=== PATIENT | female | born 1960 | race Caucasian/White ===

== ENCOUNTER 2018-11-12 08:32 | Day surgery (SDC) | payer OTHER ==
[~2018-11-12] VITALS: Ht 174 cm; Wt 81.8 kg
[~2018-11-12 08:32] MED LIST: ASPI-611 PO; BISO1TAB39 PO; CHOL100046 PO
[2018-11-12 08:39] VITALS: BP 135/85
[2018-11-12] MEDS ORDERED: fentaNYL/PF 50MCG/1 ML 2ML syringe ONE (08:42)
[2018-11-12] MEDS ORDERED: MIDAZolam 5mg/5ml vial ONE (08:43)
[2018-11-12] MEDS ORDERED: ESOM20CA PO (08:51)
[2018-11-12] MEDS ORDERED: ASPI-611 PO (08:51)
[2018-11-12 10:46] VITALS: BP 116/65
[2018-11-12 10:56] VITALS: BP 115/93
[2018-11-12 11:06] VITALS: BP 111/65
[2018-11-12 11:16] VITALS: BP 120/70
== END 2018-11-12 11:45 | disposition home or self-care (01) ==
LOC: GI LAB 08:32
PROVIDERS: ATTEND Internal Medicine Gastroenterology
DX: Z12.11 Encounter for screening for malignant neoplasm of colon (principal); K64.8 Other hemorrhoids; Q43.8 Other specified congenital malformations of intestine; K63.89 Other specified diseases of intestine
CPT/HCPCS: 45378; 99152; 99153; J2250; J3010; J7040; A4620

== ENCOUNTER 2019-07-30 08:55 | Outpatient (CLI) | payer OTHER ==
[~2019-07-30 08:55] MED LIST changes: -BISO1TAB39 PO; +ESOM20CA PO
[2019-07-30 09:49] LABS: BASOPHILS # (AUTO) 0.1 X10'3 (0-0.2); BASOPHILS % (AUTO) 1.4 % (0-1); EOSINOPHILS # (AUTO) 0.1 X10'3 (0-0.9); EOSINOPHILS % (AUTO) 1.6 % (0-6); HEMATOCRIT 41.7 % (35.0-45.0); HEMOGLOBIN 13.5 g/dl (12.0-16.0); LYMPHOCYTES # (AUTO) 2.3 X10'3 (1.1-4.8); LYMPHOCYTES % (AUTO) 32.5 % (21-51); MEAN CORPUSCULAR HEMOGLOBIN 27.9 PG (27.0-31.0); MEAN CORPUSCULAR HGB CONC 32.4 g/dL (33.0-36.5); MEAN CORPUSCULAR VOLUME 86.2 FL (78-98); MEAN PLATELET VOLUME 10.1 FL (7.4-10.4); MONOCYTES # (AUTO) 0.5 X10'3 (0-0.9); MONOCYTES % (AUTO) 7.5 % (2-12); PLATELET COUNT 256 X10'3 (140-440); RED BLOOD COUNT 4.84 X10'6 (4.20-5.60); RED CELL DISTRIBUTION WIDTH 14.9 % (11.5-14.5)
[2019-07-30 10:01] LABS: RHEUM FACTOR QUAL REFLEX TITER NEGATIVE (Neg)
[2019-07-30 10:06] LABS: ALANINE AMINOTRANSFERASE 21 U/L (12-78); ALBUMIN 3.5 G/DL (3.4-5.0); ALBUMIN/GLOBULIN RATIO 0.9 (1.1-1.5); ALKALINE PHOSPHATASE 91 IU/L (46-116); ANION GAP 5 (8-16); ASPARTATE AMINO TRANSFERASE 21 U/L (10-37); BILIRUBIN,TOTAL 0.9 MG/DL (0.1-1.0); BLOOD UREA NITROGEN 8 MG/DL (7-18); BUN/CREATININE RATIO 9.1 (6.6-38.0); CALCIUM 8.6 MG/DL (8.5-10.1); CHLORIDE 106 MMOL/L (99-107); CHOL/HDL RATIO 2.9 (0.00-4.99); CHOLESTEROL 185 MG/DL (0-200); CREATININE 0.88 MG/DL (0.40-0.90); GLUCOSE 92 MG/DL (70-104); HDL CHOLESTEROL 63 MG/DL (35-60); LDL CHOLESTEROL 106 MG/DL (50-100); POTASSIUM 3.9 MMOL/L (3.5-5.1); SODIUM 143 MMOL/L (135-145); TOTAL CARBON DIOXIDE 31.6 MMOL/L (24-32); TOTAL PROTEIN 7.4 G/DL (6.4-8.2); TRIGLYCERIDES 72 MG/DL (20-135); eGFR 66 ML/MIN
[2019-07-30 10:10] LABS: HEMOGLOBIN A1C 5.3 % (4.5-6.2)
[2019-07-31 09:12] LABS: ESTRADIOL <5.0 pg/mL (.); FSH, SERUM 71.6 mIU/mL (.); PROGESTERONE <0.1 ng/mL (.)
[2019-07-31 17:19] LABS: ANTINUCLEAR ANTIBODIES Negative (Negative)
== END 2019-07-30 23:59 | disposition home or self-care (01) ==
LOC: LAB 08:55
PROVIDERS: ATTEND Nurse Practitioner Family
DX: Z00.00 Encounter for general adult medical examination without abnormal findings (principal); M79.672 Pain in left foot; M25.552 Pain in left hip; I12.9 Hypertensive chronic kidney disease with stage 1 through stage 4 chronic kidney disease, or unspecified chronic kidney disease; N95.1 Menopausal and female climacteric states
CPT/HCPCS: 36415; 80053; 80061; 82306; 82670; 83001; 83002; 83036; 84144; 84402; 84403; 84443; 85025; 85651; 86038; 86140; 86430

== ENCOUNTER 2019-11-06 10:05 | Outpatient (CLI) | payer BC | END 2019-11-06 23:59 | disposition home or self-care (01) | LOC: RAD 10:05 | PROVIDERS: ATTEND Nurse Practitioner Family | DX: M51.36 Other intervertebral disc degeneration, lumbar region (principal); M25.552 Pain in left hip; M79.672 Pain in left foot | CPT/HCPCS: 72110; 73502; 73630 ==

== ENCOUNTER 2020-11-12 08:45 | Day surgery (SDC) | payer BC ==
[~2020-11-12] VITALS: Ht 172.7 cm; Wt 81.8 kg
[2020-11-12 09:00] VITALS: BP 154/96
[2020-11-12] MEDS ORDERED: LIDOcaine Viscous 15ml cup ONE (09:00)
[2020-11-12] MEDS ORDERED: fentaNYL/PF 50MCG/1 ML 2ML syringe ONE (09:00)
[2020-11-12] MEDS ORDERED: MIDAZolam 1 MG/ML 5ML VIAL ONE (09:00)
[2020-11-12 11:05] VITALS: BP 109/67
[2020-11-12 11:15] VITALS: BP 102/68
[2020-11-12 11:25] VITALS: BP 109/67
[2020-11-12 11:35] VITALS: BP 118/73
== END 2020-11-12 11:50 | disposition home or self-care (01) ==
LOC: GI LAB 08:45
PROVIDERS: ATTEND Internal Medicine Gastroenterology
DX: K22.70 Barrett's esophagus without dysplasia (principal); K22.8 Other specified diseases of esophagus; I10 Essential (primary) hypertension; Z88.2 Allergy status to sulfonamides; Z79.899 Other long term (current) drug therapy
CPT/HCPCS: 43239; 99152; J2250; J3010; J7040; Z7512; A4620

== ENCOUNTER 2023-12-20 09:52 | Day surgery (SDC) | payer BC ==
[~2023-12-20] VITALS: Ht 172.7 cm; Wt 86.3 kg
[~2023-12-20 09:52] MED LIST changes: -ASPI-611 PO; +BISO1TAB37 PO; -CHOL100046 PO; -ESOM20CA PO
[2023-12-20 10:56] VITALS: BP 151/83; PULSE 70; RESP 18
[2023-12-20] MEDS ORDERED: propofol inj 20 ML IV ONE (11:29)
[2023-12-20] MEDS ORDERED: midazolam 1 mg/ML 2ml injection ONE (11:29)
[2023-12-20] MEDS ORDERED: fentaNYL/PF 50MCG/1 ML 2ML syringe ONE (11:29)
[2023-12-20 11:55] VITALS: BP 117/72; PULSE 57; RESP 16; O2SAT 93
[2023-12-20 12:05] VITALS: BP 112/66; PULSE 57; RESP 16; O2SAT 95
[2023-12-20 12:15] VITALS: BP 134/80; PULSE 54; RESP 14; O2SAT 97
[2023-12-20 12:25] VITALS: BP 132/75; PULSE 61; RESP 14; O2SAT 96
== END 2023-12-20 12:40 | disposition home or self-care (01) ==
LOC: PRE-OP 09:52
PROVIDERS: ATTEND Internal Medicine Gastroenterology
DX: R12 Heartburn (principal); K22.70 Barrett's esophagus without dysplasia; K44.9 Diaphragmatic hernia without obstruction or gangrene; K29.50 Unspecified chronic gastritis without bleeding; K31.A0 Gastric intestinal metaplasia, unspecified; K21.9 Gastro-esophageal reflux disease without esophagitis; I10 Essential (primary) hypertension; Z87.891 Personal history of nicotine dependence; Z79.899 Other long term (current) drug therapy; Z88.2 Allergy status to sulfonamides
CPT/HCPCS: 43239; J2250; J2704; J3010; J7030; Z7512; A4620

== ENCOUNTER 2024-06-11 14:31 | Outpatient (CLI) | payer BC | END 2024-06-11 23:59 | disposition home or self-care (01) | LOC: VAS 14:31 | PROVIDERS: ATTEND Physician Assistant | DX: M47.812 Spondylosis without myelopathy or radiculopathy, cervical region (principal); R42 Dizziness and giddiness | CPT/HCPCS: 72050; 93880 ==

== ENCOUNTER 2024-06-14 09:56 | Outpatient (CLI) | payer BC ==
[2024-06-14 10:43] LABS: BASOPHILS # (AUTO) 0.1 X10'3 (0-0.2); BASOPHILS % (AUTO) 0.9 % (0-1); EOSINOPHILS # (AUTO) 0.1 X10'3 (0-0.9); EOSINOPHILS % (AUTO) 1.5 % (0-6); HEMATOCRIT 41.7 % (35.0-45.0); HEMOGLOBIN 13.8 g/dl (12.0-16.0); LYMPHOCYTES % (AUTO) 25.1 % (21-51); MEAN CORPUSCULAR HEMOGLOBIN 27.4 PG (27.0-31.0); MEAN CORPUSCULAR VOLUME 83.1 FL (78-98); MEAN PLATELET VOLUME 9.6 FL (7.4-10.4); MONOCYTES # (AUTO) 0.6 X10'3 (0-0.9); MONOCYTES % (AUTO) 7.5 % (2-12); NEUTROPHILS # (AUTO) 5.3 X10'3 (1.8-7.7); PLATELET COUNT 254 X10'3 (140-440); RED BLOOD COUNT 5.02 X10'6 (4.20-5.60); RED CELL DISTRIBUTION WIDTH 15.2 % (11.5-14.5); WHITE BLOOD COUNT 8.1 X10'3 (4.5-11.0)
[2024-06-14 10:58] LABS: ANION GAP 6 (8-16); BLOOD UREA NITROGEN 24 MG/DL (7-18); CHLORIDE 105 MMOL/L (99-107); GLUCOSE 89 MG/DL (70-104); POTASSIUM 3.7 MMOL/L (3.5-5.1); SODIUM 141 MMOL/L (135-145); TOTAL CARBON DIOXIDE 30.3 MMOL/L (24-32)
[2024-06-14 10:59] LABS: ALANINE AMINOTRANSFERASE 23 U/L (12-78); ALBUMIN 3.4 G/DL (3.4-5.0); ALBUMIN/GLOBULIN RATIO 0.9 (1.1-1.5); ALKALINE PHOSPHATASE 92 IU/L (46-116); ASPARTATE AMINO TRANSFERASE 19 U/L (10-37); CALCIUM 8.1 MG/DL (8.5-10.1); CHOLESTEROL 205 MG/DL (0-200); HDL CHOLESTEROL 68 MG/DL (35-60); HEMOGLOBIN A1C 5.5 % (4.5-6.2); LDL CHOLESTEROL 119 MG/DL (50-100); THYROID STIMULATING HORMONE 2.21 ulU/ml (0.34-4.50); TOTAL PROTEIN 7.4 G/DL (6.4-8.2); TRIGLYCERIDES 51 MG/DL (20-135); eGFR 72 ML/MIN
== END 2024-06-14 23:59 | disposition home or self-care (01) ==
LOC: RAD 09:56
PROVIDERS: ATTEND Emergency Medical Technician, Paramedic
DX: E11.9 Type 2 diabetes mellitus without complications (principal); E78.5 Hyperlipidemia, unspecified; Z00.00 Encounter for general adult medical examination without abnormal findings; E55.9 Vitamin D deficiency, unspecified; R79.89 Other specified abnormal findings of blood chemistry; R94.30 Abnormal result of cardiovascular function study, unspecified; R00.2 Palpitations
CPT/HCPCS: 36415; 80053; 80061; 82306; 83036; 84443; 84484; 85025

== ENCOUNTER 2024-06-21 11:05 | Outpatient (CLI) | payer BC ==
[2024-06-21 12:29] LABS: ALANINE AMINOTRANSFERASE 19 U/L (12-78); ALBUMIN 3.4 G/DL (3.4-5.0); ALBUMIN/GLOBULIN RATIO 0.9 (1.1-1.5); ALKALINE PHOSPHATASE 87 IU/L (46-116); ANION GAP 3 (8-16); ASPARTATE AMINO TRANSFERASE 18 U/L (10-37); BILIRUBIN,TOTAL 1.2 MG/DL (0.1-1.0); BLOOD UREA NITROGEN 24 MG/DL (7-18); BUN/CREATININE RATIO 29.3 (10.0-20.0); CALCIUM 8.5 MG/DL (8.5-10.1); CHLORIDE 106 MMOL/L (99-107); CHOL/HDL RATIO 2.4 (0.00-4.99); CHOLESTEROL 174 MG/DL (0-200); CREATININE 0.82 MG/DL (0.40-0.90); FREE T4 (FREE THYROXINE) 1.12 NG/DL (0.73-1.40); GLUCOSE 99 MG/DL (70-104); HDL CHOLESTEROL 74 MG/DL (35-60); LDL CHOLESTEROL 90 MG/DL (50-100); MAGNESIUM 2.1 MG/DL (1.5-2.4); POTASSIUM 3.3 MMOL/L (3.5-5.1); SODIUM 141 MMOL/L (135-145); THYROID STIMULATING HORMONE 1.64 ulU/ml (0.34-4.50); TOTAL CARBON DIOXIDE 31.6 MMOL/L (24-32); TOTAL PROTEIN 7.3 G/DL (6.4-8.2); TRIGLYCERIDES 43 MG/DL (20-135); eGFR 70 ML/MIN
== END 2024-06-21 23:59 | disposition home or self-care (01) ==
LOC: RAD 11:05
PROVIDERS: ATTEND Internal Medicine Interventional Cardiology
DX: I11.9 Hypertensive heart disease without heart failure (principal); I49.3 Ventricular premature depolarization
CPT/HCPCS: 36415; 80053; 80061; 83695; 83735; 84439; 84443

== ENCOUNTER → 2024-06-28 | Outpatient (CLI) | payer BC ==
[2024-06-28 14:31] LABS: ALBUMIN 3.4 G/DL (3.4-5.0); ANION GAP 4 (8-16); BLOOD UREA NITROGEN 8 MG/DL (7-18); BUN/CREATININE RATIO 9.5 (10.0-20.0); CALCIUM 8.7 MG/DL (8.5-10.1); CHLORIDE 106 MMOL/L (99-107); CREATININE 0.84 MG/DL (0.40-0.90); GLUCOSE 104 MG/DL (70-104); POTASSIUM 4.2 MMOL/L (3.5-5.1); SODIUM 145 MMOL/L (135-145); TOTAL CARBON DIOXIDE 34.6 MMOL/L (24-32); eGFR 68 ML/MIN
== END | disposition home or self-care (01) ==
LOC: RAD 13:50
PROVIDERS: ATTEND Internal Medicine Interventional Cardiology
DX: I11.9 Hypertensive heart disease without heart failure (principal)
CPT/HCPCS: 36415; 80048

== ENCOUNTER 2024-07-10 10:16 | Outpatient (CLI) | payer BC ==
--- NOTE | 2024-07-10 17:38 | CARDIOLOGY REPORT ---
APPROVED REPORT EXAM: Comprehensive 2D, Doppler, and color-flow Echocardiogram. Patient Location: OUT-PATIENT Blood Pressure: 163/78 mmHg Heart Rate: 73 bpm Rhythm: Sinus Indications Hypertension Dizziness [facility] MARBLE COPER: Grisel Zapata MD No Previous Echo 2D Dimensions LA Diam3.7 cm IVSd 1.0 (0.7-1.1cm) LVDd 3.8 cm PWd 0.7 (0.7-1.1cm) IVSs 0.9 (0.8-1.2cm) LVDs 2.5 (2.5-4.0cm) PWs 0.9 (0.8-1.2cm) LVOT Diameter 2.14 (1.8-2.4cm) LVEF(%) 64.2 (>50%) IVC 17.48 mm FS (%) 34.4 % SV 41.0 ml M-Mode Dimensions Left Atrium(MM) 4.11 (2.5-4.0cm) Aortic Root 2.58 (2.2-3.7cm) MV EPSS 1.0 (<0.5cm) Aortic Valve AoV Peak Nelson. 157.3 cm/s AoV VTI 26.2 cm AO Peak GR. 9.9 mmHg AO Mean GR. 4 mmHg LVOT VTI 22.40 cm LVOT Peak Nelson. 113.0 cm/s VAMSHI (VMAX) 2.59 cm2 VAMSHI (VTI) 3.09 cm2 AI P 1/2 Time 447 ms Mitral Valve MV E Velocity 65.4 cm/s MV DECEL TIME 185 ms MV A Velocity 88.5 cm/s MV PHT 42 ms E/A Ratio 0.7 MVA (PHT) 5.18 cm2 TDI E/Medial E' 12.5 Pulmonary Valve PV Peak Velocity 87.4 cm/s PV Peak Grad. 3 mmHg Tricuspid Valve TR P. Velocity 183 cm/s RAP ESTIMATE 10 mmHg TR Peak Gr. 14 mmHg RVSP 24 mmHg Pulmonary Vein S2 Velocity 65.12 cm/s PVa [id number] msec LEFT VENTRICLE Normal LV size and wall thickness. Overall systolic function is normal. LVEF is 65%. RIGHT VENTRICLE RV is normal size and function. ATRIA Left atrium is mildly dilated. AORTIC VALVE Trileaflet AV appears mildly sclerotic without stenosis. Mild insufficiency. MITRAL VALVE Mild mitral annular calcification without stenosis. Trace regurgitation. TRICUSPID VALVE The tricuspid valve is normal in structure with trace regurgitation. PULMONIC VALVE The pulmonary valve is normal in structure with physiologic insufficiency. GREAT VESSELS The aortic root is normal in size. The ascending aorta is normal in size. The IVC is normal in size a nd collapses >50% with inspiration. PERICARDIUM Normal pericardium. No effusion. Other Information Study Quality: Adequate Conclusion Normal LV size and wall thickness. Overall systolic function is normal. LVEF is 65%. RV is normal size and function. Left atrium is mildly dilated. Trileaflet AV appears mildly sclerotic without stenosis. Mild insufficiency. Mild mitral annular calcification without stenosis. Trace regurgitation. The tricuspid valve is normal in structure with trace regurgitation. Normal pericardium. No effusion.
== END 2024-07-10 23:59 | disposition home or self-care (01) ==
LOC: RAD 10:16
PROVIDERS: ATTEND Internal Medicine Interventional Cardiology
DX: I08.8 Other rheumatic multiple valve diseases (principal); I49.3 Ventricular premature depolarization; I11.9 Hypertensive heart disease without heart failure; R79.9 Abnormal finding of blood chemistry, unspecified; F41.1 Generalized anxiety disorder
CPT/HCPCS: 93306